=== PATIENT | male | born 1945 | race Caucasian/White ===

== ENCOUNTER 2016-10-17 15:00 | Inpatient (IN) | payer MEDICARE ==
[~2016-10-17] VITALS: Ht 177.8 cm; Wt 85.1 kg
[~2016-10-17 15:00] MED LIST: AMLO-511 PO; ASPI-1093 PO; ATOR40TA28 PO; DSS100 PO; DUTA.5 PO; FLUT1AER PO; LEVE500T8 PO; LEVO500 PO; METO25 PO; METR250 PO; PANT40TA25 PO; TAMS0.4C32 PO; VITAD1000 PO
[2016-10-17] MEDS ORDERED: ASPIRIN 325 MG EC TABLET PO ONE (20:30)
[2016-10-17 20:45] LABS: BASOPHILS % (AUTO) 0.4 % (0.0-2.0); EOSINOPHILS % (AUTO) 1.8 % (1.0-6.0); HEMOGLOBIN 13.3 g/dL (13.5-17.5); LYMPHOCYTES # (AUTO) 1.1 K/uL (1.0-4.8); LYMPHOCYTES % (AUTO) 14.8 % (22.0-44.0); MEAN CORPUSCULAR HEMOGLOBIN 27.8 pg (26.0-34.0); MEAN CORPUSCULAR HGB CONC 32.4 G/dL (31.0-37.0); MEAN CORPUSCULAR VOLUME 86 fL (80-100); MONOCYTES # (AUTO) 0.5 K/uL (0.1-1.0); MONOCYTES % (AUTO) 6.6 % (2.0-9.0); NEUTROPHILS # (AUTO) 5.8 K/uL (1.8-7.7); NEUTROPHILS % (AUTO) 76.4 % (40.0-70.0); PLATELET COUNT (AUTO) 215 K/uL (150-450); RED BLOOD CELL COUNT(AUTO) 4.78 MIL/uL (4.50-5.90); RED CELL DISTRIBUTION WIDTH 17.2 % (11.5-14.5); WHITE BLOOD COUNT (AUTO) 7.6 K/uL (4.5-11.0)
[2016-10-17 20:49] LABS: RBC MORPHOLOGY COMMENT ABNORMAL RBC MORPH
[2016-10-17 21:08] LABS: ANION GAP 10 mmol/L (8-16); CALCIUM, TOTAL 9.2 mg/dL (8.8-10.5); CARBON DIOXIDE 28 mmol/L (22-29); CHLORIDE 100 mmol/L (98-107); CREATININE 2.07 mg/dL (0.60-1.30); GLOMERULAR FILTR. RATE CALC 32 mL/min (>60); POTASSIUM 4.5 mmol/L (3.5-5.1); SODIUM SERUM 138 mmol/L (136-145); UREA NITROGEN, BLOOD 32 mg/dL (7-18)
[2016-10-17 21:15] LABS: B-TYPE NATRIURETIC PEPTIDE 24 pg/mL (0-100)
[2016-10-17 21:35] LABS: ALANINE AMINOTRANSFERASE 31 U/L (12-78); ALBUMIN 4.4 g/dL (3.4-5.0); ASPARTATE AMINOTRANSFERASE 25 U/L (15-37); BILIRUBIN,TOTAL 0.5 mg/dL (0.1-1.0); CREATINE KINASE MB 1.4 ng/mL (0-5); CREATINE KINASE, TOTAL 85 U/L (39-308)
[2016-10-17] MEDS ORDERED: ONDANSETRON HCL 4 MG/2 ML VIAL IVP PRN (23:15)
[2016-10-17] MEDS ORDERED: ACETAMINOPHEN 325 MG TABLET PO PRN (23:15)
[2016-10-17] MEDS ORDERED: 0.9% SODIUM CHLORIDE 10 ML SYRINGE IVP PRN (23:15)
[2016-10-18 04:22] VITALS: BP 146/71
[2016-10-18 07:36] VITALS: BP 148/72
[2016-10-18] MEDS ORDERED: PANTOPRAZOLE SODIUM 40 MG DR TABLET PO SCH (09:00)
[2016-10-18] MEDS: HYDROCODONE/ACETAMINOPHEN 5-325 MG TABLET PO PRN ×3 (09:29→21:24)
[2016-10-18] MEDS ORDERED: ALBUTEROL SULFATE 2.5 MG/0.5 ML NEB SOLUTION NEB PRN (09:30)
[2016-10-18] MEDS ORDERED: IPRATROPIUM BROMIDE 0.5 MG/2.5 ML NEB SOLUTION NEB PRN (09:30)
[2016-10-18 11:26] VITALS: BP 150/73
[2016-10-18 15:21] VITALS: BP 177/78
[2016-10-18] MEDS: FLUTICASONE/VILANTEROL 100-25 MCG/INH INHALER [14] IH SCH (15:28)
[2016-10-18] MEDS: LEVOFLOXACIN 500 MG TABLET PO SCH (15:29)
[2016-10-18] MEDS: LevETIRAcetam 500 MG TABLET PO SCH ×2 (15:29→20:14)
[2016-10-18] MEDS: TAMSULOSIN HCL 0.4 MG CAPSULE PO SCH (15:29)
[2016-10-18] MEDS: DOCUSATE SODIUM 100 MG CAPSULE PO SCH ×2 (15:29→20:14)
[2016-10-18] MEDS: ASPIRIN 81 MG EC TABLET PO SCH (15:29)
[2016-10-18] MEDS: AmLODIPine BESYLATE 5 MG TABLET PO SCH (15:30)
[2016-10-18] MEDS: CHOLECALCIFEROL (VIT D3) 1,000 UNITS TABLET PO SCH (15:30)
[2016-10-18] MEDS: PANTOPRAZOLE SODIUM 40 MG DR TABLET PO SCH (15:30)
[2016-10-18] MEDS: METOPROLOL TARTRATE 25 MG TABLET PO SCH ×2 (16:50→23:32)
[2016-10-18] MEDS: HEPARIN SODIUM,PORCINE 5,000 UNITS/ML VIAL SQ SCH ×2 (16:51→23:33)
[2016-10-18] MEDS: MetroNIDAZOLE 250 MG TABLET PO SCH (18:05)
[2016-10-18] MEDS: ONDANSETRON HCL 4 MG/2 ML VIAL IVP PRN (18:06)
[2016-10-18 19:29] VITALS: BP 149/65
[2016-10-18] MEDS: DUTASTERIDE 0.5 MG CAPSULE PO SCH (20:14)
[2016-10-18] MEDS: ATORVASTATIN CALCIUM 40 MG TABLET PO SCH (20:14)
[2016-10-18] MEDS: MAGNESIUM HYDROXIDE SUSPENSION 30 ML UDCUP PO PRN (20:15)
[2016-10-18 23:26] VITALS: BP 143/80
[2016-10-19] MEDS: HYDROCODONE/ACETAMINOPHEN 5-325 MG TABLET PO PRN ×4 (03:30→23:18)
[2016-10-19 03:49] VITALS: BP 144/66
[2016-10-19 07:51] VITALS: BP 161/81
[2016-10-19] MEDS: MetroNIDAZOLE 250 MG TABLET PO SCH ×3 (08:00→18:11)
[2016-10-19] MEDS: METOPROLOL TARTRATE 25 MG TABLET PO SCH (08:00)
[2016-10-19] MEDS: FLUTICASONE/VILANTEROL 100-25 MCG/INH INHALER [14] IH SCH (09:00)
[2016-10-19 09:15] LABS: BASOPHILS % (AUTO) 0.3 % (0.0-2.0); EOSINOPHILS % (AUTO) 3.8 % (1.0-6.0); HEMATOCRIT 36.5 % (41-53); HEMOGLOBIN 11.9 g/dL (13.5-17.5); LYMPHOCYTES # (AUTO) 1.3 K/uL (1.0-4.8); LYMPHOCYTES % (AUTO) 19.7 % (22.0-44.0); MEAN CORPUSCULAR HEMOGLOBIN 27.8 pg (26.0-34.0); MEAN CORPUSCULAR HGB CONC 32.4 G/dL (31.0-37.0); MEAN CORPUSCULAR VOLUME 86 fL (80-100); MONOCYTES # (AUTO) 0.7 K/uL (0.1-1.0); MONOCYTES % (AUTO) 11.3 % (2.0-9.0); NEUTROPHILS # (AUTO) 4.1 K/uL (1.8-7.7); NEUTROPHILS % (AUTO) 64.9 % (40.0-70.0); PLATELET COUNT (AUTO) 177 K/uL (150-450); RED BLOOD CELL COUNT(AUTO) 4.27 MIL/uL (4.50-5.90); RED CELL DISTRIBUTION WIDTH 18.1 % (11.5-14.5); WHITE BLOOD COUNT (AUTO) 6.4 K/uL (4.5-11.0)
[2016-10-19 09:33] LABS: CALCIUM, TOTAL 8.1 mg/dL (8.8-10.5); CHOL/HDL RATIO 2.5 (4.2-7.3); CREATININE 1.74 mg/dL (0.60-1.30); MAGNESIUM 2.1 mg/dL (1.80-2.40); POTASSIUM 4.4 mmol/L (3.5-5.1)
[2016-10-19] MEDS: ONDANSETRON HCL 4 MG/2 ML VIAL IVP PRN ×2 (10:36→19:41)
[2016-10-19 10:55] VITALS: BP 163/86
[2016-10-19 11:09] LABS: RBC MORPHOLOGY COMMENT ABNORMAL RBC MORPH
[2016-10-19] MEDS: HEPARIN SODIUM,PORCINE 5,000 UNITS/ML VIAL SQ SCH ×4 (11:10→23:39)
[2016-10-19] MEDS: DOCUSATE SODIUM 100 MG CAPSULE PO SCH ×2 (11:11→19:42)
[2016-10-19] MEDS: LEVOFLOXACIN 500 MG TABLET PO SCH (11:12)
[2016-10-19] MEDS: TAMSULOSIN HCL 0.4 MG CAPSULE PO SCH (11:12)
[2016-10-19] MEDS: ASPIRIN 81 MG EC TABLET PO SCH (11:12)
[2016-10-19] MEDS: LevETIRAcetam 500 MG TABLET PO SCH ×2 (11:12→19:43)
[2016-10-19] MEDS: PANTOPRAZOLE SODIUM 40 MG DR TABLET PO SCH (11:13)
[2016-10-19] MEDS: AmLODIPine BESYLATE 5 MG TABLET PO SCH (11:13)
[2016-10-19] MEDS: CHOLECALCIFEROL (VIT D3) 1,000 UNITS TABLET PO SCH (11:13)
[2016-10-19 16:45] VITALS: BP 135/59
[2016-10-19] MEDS: DUTASTERIDE 0.5 MG CAPSULE PO SCH (19:41)
[2016-10-19] MEDS: ATORVASTATIN CALCIUM 40 MG TABLET PO SCH (19:42)
[2016-10-19 19:50] VITALS: BP 166/94
[2016-10-19] MEDS: MIRTAZAPINE 15 MG TABLET PO SCH (20:57)
[2016-10-19] MEDS: HALOPERIDOL 5 MG TABLET PO PRN (21:18)
[2016-10-19 23:18] VITALS: BP 155/76
[2016-10-20] MEDS: HYDROCODONE/ACETAMINOPHEN 5-325 MG TABLET PO PRN ×4 (02:30→21:10)
[2016-10-20 05:02] VITALS: BP 122/51
[2016-10-20 06:22] VITALS: BP 152/61
[2016-10-20] MEDS: NITROGLYCERIN 2% (1 GM=INCH) PACKET TP PRN ×2 (06:35→14:43)
[2016-10-20 07:38] VITALS: BP_SYST 147; BP_SYST 167; BP_DIAS 67
[2016-10-20] MEDS: MetroNIDAZOLE 250 MG TABLET PO SCH ×3 (08:11→16:12)
[2016-10-20] MEDS: AmLODIPine BESYLATE 5 MG TABLET PO SCH (08:12)
[2016-10-20] MEDS: LEVOFLOXACIN 500 MG TABLET PO SCH (08:12)
[2016-10-20] MEDS: HEPARIN SODIUM,PORCINE 5,000 UNITS/ML VIAL SQ SCH ×2 (08:12→16:05)
[2016-10-20] MEDS: DOCUSATE SODIUM 100 MG CAPSULE PO SCH ×2 (08:13→20:37)
[2016-10-20] MEDS: PANTOPRAZOLE SODIUM 40 MG DR TABLET PO SCH (08:13)
[2016-10-20] MEDS: TAMSULOSIN HCL 0.4 MG CAPSULE PO SCH (08:13)
[2016-10-20] MEDS: LevETIRAcetam 500 MG TABLET PO SCH ×2 (08:13→20:37)
[2016-10-20] MEDS: CHOLECALCIFEROL (VIT D3) 1,000 UNITS TABLET PO SCH (08:14)
[2016-10-20] MEDS: FLUTICASONE/VILANTEROL 100-25 MCG/INH INHALER [14] IH SCH (08:14)
[2016-10-20] MEDS: ASPIRIN 81 MG EC TABLET PO SCH (08:14)
[2016-10-20] MEDS: ONDANSETRON HCL 4 MG/2 ML VIAL IVP PRN ×2 (10:05→18:49)
[2016-10-20 11:36] VITALS: BP 132/69
[2016-10-20] MEDS ORDERED: HYDROCODONE/ACETAMINOPHEN 5-325 MG TABLET ONE (12:10)
[2016-10-20 15:13] VITALS: BP 128/64
[2016-10-20] MEDS: HALOPERIDOL 5 MG TABLET PO PRN (16:12)
[2016-10-20 19:59] VITALS: BP 130/70
[2016-10-20] MEDS: DUTASTERIDE 0.5 MG CAPSULE PO SCH (20:37)
[2016-10-20] MEDS: ATORVASTATIN CALCIUM 40 MG TABLET PO SCH (20:37)
[2016-10-20] MEDS: MIRTAZAPINE 15 MG TABLET PO SCH (20:38)
[2016-10-21] MEDS: HALOPERIDOL 5 MG TABLET PO PRN ×3 (01:21→23:46)
[2016-10-21] MEDS: HYDROCODONE/ACETAMINOPHEN 5-325 MG TABLET PO PRN ×6 (01:22→23:46)
[2016-10-21 05:29] VITALS: BP 144/64
[2016-10-21 08:01] VITALS: BP 140/79
[2016-10-21] MEDS: DOCUSATE SODIUM 100 MG CAPSULE PO SCH ×2 (08:25→20:01)
[2016-10-21] MEDS: PANTOPRAZOLE SODIUM 40 MG DR TABLET PO SCH (08:25)
[2016-10-21] MEDS: MetroNIDAZOLE 250 MG TABLET PO SCH ×3 (08:26→17:24)
[2016-10-21] MEDS: LEVOFLOXACIN 500 MG TABLET PO SCH (08:26)
[2016-10-21] MEDS: LevETIRAcetam 500 MG TABLET PO SCH ×2 (08:26→20:00)
[2016-10-21] MEDS: AmLODIPine BESYLATE 5 MG TABLET PO SCH (08:26)
[2016-10-21] MEDS: ASPIRIN 81 MG EC TABLET PO SCH (08:27)
[2016-10-21] MEDS: TAMSULOSIN HCL 0.4 MG CAPSULE PO SCH (08:27)
[2016-10-21] MEDS: CHOLECALCIFEROL (VIT D3) 1,000 UNITS TABLET PO SCH (08:28)
[2016-10-21] MEDS: HEPARIN SODIUM,PORCINE 5,000 UNITS/ML VIAL SQ SCH ×4 (08:30→23:45)
[2016-10-21] MEDS: NITROGLYCERIN 2% (1 GM=INCH) PACKET TP PRN (09:21)
[2016-10-21] MEDS: ONDANSETRON HCL 4 MG/2 ML VIAL IVP PRN (10:14)
[2016-10-21] MEDS: FLUTICASONE/VILANTEROL 100-25 MCG/INH INHALER [14] IH SCH (10:15)
[2016-10-21 11:46] VITALS: BP 148/76
[2016-10-21] MEDS ORDERED: LORazepam 2 MG/ML VIAL IVP ONE (14:30)
[2016-10-21 16:35] VITALS: BP 144/77
[2016-10-21] MEDS: ONDANSETRON HCL 4 MG/2 ML VIAL IM PRN (16:44)
[2016-10-21 19:50] VITALS: BP 140/76
[2016-10-21] MEDS: DUTASTERIDE 0.5 MG CAPSULE PO SCH (20:00)
[2016-10-21] MEDS: ATORVASTATIN CALCIUM 40 MG TABLET PO SCH (20:00)
[2016-10-21] MEDS: MIRTAZAPINE 15 MG TABLET PO SCH (20:01)
[2016-10-21] MEDS ORDERED: LORazepam 2 MG/ML VIAL ONE (20:01)
[2016-10-21] MEDS: MAGNESIUM HYDROXIDE SUSPENSION 30 ML UDCUP PO PRN (21:30)
[2016-10-21 23:37] VITALS: BP 124/49
[2016-10-22] MEDS: NITROGLYCERIN 2% (1 GM=INCH) PACKET TP PRN ×2 (01:13→06:28)
[2016-10-22 03:53] LABS: CREATINE KINASE MB 1.1 ng/mL (0-5); CREATINE KINASE, TOTAL 151 U/L (39-308)
[2016-10-22 04:19] VITALS: BP 135/69
[2016-10-22] MEDS: ONDANSETRON HCL 4 MG/2 ML VIAL IM PRN ×2 (04:21→08:22)
[2016-10-22] MEDS: HYDROCODONE/ACETAMINOPHEN 5-325 MG TABLET PO PRN ×4 (06:25→17:51)
[2016-10-22 07:18] VITALS: BP 153/68
[2016-10-22] MEDS: PANTOPRAZOLE SODIUM 40 MG DR TABLET PO SCH (09:06)
[2016-10-22] MEDS: TAMSULOSIN HCL 0.4 MG CAPSULE PO SCH (09:06)
[2016-10-22] MEDS: ASPIRIN 81 MG EC TABLET PO SCH (09:06)
[2016-10-22] MEDS: LEVOFLOXACIN 500 MG TABLET PO SCH (09:06)
[2016-10-22] MEDS: LevETIRAcetam 500 MG TABLET PO SCH (09:07)
[2016-10-22] MEDS: CHOLECALCIFEROL (VIT D3) 1,000 UNITS TABLET PO SCH (09:07)
[2016-10-22] MEDS: HEPARIN SODIUM,PORCINE 5,000 UNITS/ML VIAL SQ SCH ×2 (09:07→16:56)
[2016-10-22] MEDS: MetroNIDAZOLE 250 MG TABLET PO SCH ×3 (09:07→17:51)
[2016-10-22] MEDS: DOCUSATE SODIUM 100 MG CAPSULE PO SCH (09:07)
[2016-10-22] MEDS: AmLODIPine BESYLATE 5 MG TABLET PO SCH (09:08)
[2016-10-22] MEDS: FLUTICASONE/VILANTEROL 100-25 MCG/INH INHALER [14] IH SCH (09:08)
[2016-10-22] MEDS: MAGNESIUM HYDROXIDE SUSPENSION 30 ML UDCUP PO PRN (09:16)
[2016-10-22 12:23] VITALS: BP 167/84
[2016-10-22] MEDS: HALOPERIDOL 5 MG TABLET PO PRN (13:09)
[2016-10-22 15:00] VITALS: BP 142/75
== END 2016-10-22 19:00 | disposition home or self-care (01) | DRG 303 ==
LOC: EMS 15:02 → 5S 23:45 → 6N 10-19 16:30
PROVIDERS: ADMIT Family Medicine; ATTEND Family Medicine
DX: I25.119 Atherosclerotic heart disease of native coronary artery with unspecified angina pectoris (principal); J44.9 Chronic obstructive pulmonary disease, unspecified; I48.91 Unspecified atrial fibrillation; N18.9 Chronic kidney disease, unspecified; I12.9 Hypertensive chronic kidney disease with stage 1 through stage 4 chronic kidney disease, or unspecified chronic kidney disease; E78.00 Pure hypercholesterolemia, unspecified; E78.5 Hyperlipidemia, unspecified; F20.9 Schizophrenia, unspecified; F34.1 Dysthymic disorder; G40.909 Epilepsy, unspecified, not intractable, without status epilepticus; G89.4 Chronic pain syndrome; I44.0 Atrioventricular block, first degree; F17.210 Nicotine dependence, cigarettes, uncomplicated; F43.23 Adjustment disorder with mixed anxiety and depressed mood; M79.7 Fibromyalgia; M48.00 Spinal stenosis, site unspecified; N40.0 Benign prostatic hyperplasia without lower urinary tract symptoms; I25.2 Old myocardial infarction; Z79.899 Other long term (current) drug therapy; Z79.82 Long term (current) use of aspirin; Z88.1 Allergy status to other antibiotic agents; Z91.018 Allergy to other foods; Z91.09 Other allergy status, other than to drugs and biological substances; Z89.022 Acquired absence of left finger(s); Z98.890 Other specified postprocedural states; Z90.49 Acquired absence of other specified parts of digestive tract; Z95.5 Presence of coronary angioplasty implant and graft; Z95.0 Presence of cardiac pacemaker; Z87.11 Personal history of peptic ulcer disease; Z82.49 Family history of ischemic heart disease and other diseases of the circulatory system; Z83.6 Family history of other diseases of the respiratory system
CPT/HCPCS: 83735; 93005; 99285; J1644; J2060; J2405

== ENCOUNTER 2016-10-23 04:15 | Emergency (ER) | payer MEDICARE ==
[~2016-10-23] VITALS: Ht 177.8 cm; Wt 75.0 kg
[2016-10-23 05:27] LABS: APPEARANCE,URINE CLEAR (CLEAR); GLUCOSE, URINE (UA) NEGATIVE (NEGATIVE); KETONES,URINE NEGATIVE (NEGATIVE); LEUKOCYTE ESTERASE ,URINE TRACE (NEGATIVE); OCCULT BLOOD,URINE NEGATIVE (NEGATIVE); PROTEIN,URINE NEGATIVE (NEGATIVE)
[2016-10-23 05:28] LABS: ADD UA MICROSCOPIC YES
[2016-10-23 05:47] LABS: RBC,URINE 0-2 /HPF (0-2); SQUAMOUS EPITHELIAL CELL,UR Rare /LPF (None Seen)
[2016-10-23 05:54] LABS: BASOPHILS # (AUTO) 0.04 K/uL (0.00-0.20); BASOPHILS % (AUTO) 0.6 % (0.0-2.0); EOSINOPHILS # (AUTO) 0.33 K/uL (0.00-0.70); EOSINOPHILS % (AUTO) 5.39 % (1.0-6.0); HEMATOCRIT 33.9 % (41-53); HEMOGLOBIN 11.3 g/dL (13.5-17.5); LYMPHOCYTES # (AUTO) 1.2 K/uL (1.0-4.8); LYMPHOCYTES % (AUTO) 20.4 % (22.0-44.0); MEAN CORPUSCULAR HEMOGLOBIN 28.6 pg (26.0-34.0); MEAN CORPUSCULAR HGB CONC 33.3 G/dL (31.0-37.0); MEAN CORPUSCULAR VOLUME 86 fL (80-100); MONOCYTES # (AUTO) 0.6 K/uL (0.1-1.0); MONOCYTES % (AUTO) 10.3 % (2.0-9.0); NEUTROPHILS # (AUTO) 3.8 K/uL (1.8-7.7); NEUTROPHILS % (AUTO) 63.3 % (40.0-70.0); PLATELET COUNT (AUTO) 186 K/uL (150-450); RED BLOOD CELL COUNT(AUTO) 3.96 MIL/uL (4.50-5.90); RED CELL DISTRIBUTION WIDTH 17.9 % (11.5-14.5)
[2016-10-23 06:06] LABS: CALCIUM, TOTAL 8.2 mg/dL (8.8-10.5); CREATININE 2.1 mg/dL (0.60-1.30); POTASSIUM 4.7 mmol/L (3.5-5.1)
[2016-10-23 06:12] LABS: ALBUMIN 3.5 g/dL (3.4-5.0); BILIRUBIN,TOTAL 0.5 mg/dL (0.1-1.0); TOTAL PROTEIN, SERUM 6.7 g/dL (6.4-8.2)
[2016-10-23 08:44] VITALS: BP 157/76
== END 2016-10-23 09:39 | disposition home or self-care (01) ==
LOC: EMS 04:17
DX: R10.13 Epigastric pain (principal); I11.0 Hypertensive heart disease with heart failure; I50.9 Heart failure, unspecified; I25.10 Atherosclerotic heart disease of native coronary artery without angina pectoris; I48.91 Unspecified atrial fibrillation; E78.00 Pure hypercholesterolemia, unspecified; J44.9 Chronic obstructive pulmonary disease, unspecified; F17.210 Nicotine dependence, cigarettes, uncomplicated; Z88.1 Allergy status to other antibiotic agents; Z91.018 Allergy to other foods
CPT/HCPCS: 93005; 99285

== ENCOUNTER 2016-10-24 09:04 | Emergency (ER) | payer MEDICARE ==
[~2016-10-24] VITALS: Ht 177.8 cm; Wt 75.0 kg
[~2016-10-24 09:04] MED LIST changes: +FLUT1AER IH; -FLUT1AER PO
[2016-10-24 09:16] VITALS: BP 161/81
== END 2016-10-24 09:50 | disposition home or self-care (01) ==
LOC: EMS 09:08
DX: R07.9 Chest pain, unspecified (principal); R10.13 Epigastric pain; G89.29 Other chronic pain; F20.9 Schizophrenia, unspecified; I48.91 Unspecified atrial fibrillation; F41.9 Anxiety disorder, unspecified; I25.119 Atherosclerotic heart disease of native coronary artery with unspecified angina pectoris; J44.9 Chronic obstructive pulmonary disease, unspecified; I25.2 Old myocardial infarction; F32.9 Major depressive disorder, single episode, unspecified; I10 Essential (primary) hypertension; F17.210 Nicotine dependence, cigarettes, uncomplicated; E78.00 Pure hypercholesterolemia, unspecified; Z95.0 Presence of cardiac pacemaker; Z88.8 Allergy status to other drugs, medicaments and biological substances; Z91.018 Allergy to other foods
CPT/HCPCS: 93005; 99283

== ENCOUNTER 2016-12-04 19:20 | Emergency (ER) | payer MEDICARE, MEDICAID ==
[~2016-12-04] VITALS: Ht 177.8 cm; Wt 75.0 kg
[~2016-12-04 19:20] MED LIST changes: -FLUT1AER IH; +FLUT1AER PO
[2016-12-04 20:10] LABS: BASOPHILS # (AUTO) 0.02 K/uL (0.00-0.20); BASOPHILS % (AUTO) 0.4 % (0.0-2.0); EOSINOPHILS # (AUTO) 0.21 K/uL (0.00-0.70); EOSINOPHILS % (AUTO) 3.44 % (1.0-6.0); HEMATOCRIT 35.3 % (41-53); HEMOGLOBIN 11.5 g/dL (13.5-17.5); LYMPHOCYTES # (AUTO) 1.2 K/uL (1.0-4.8); LYMPHOCYTES % (AUTO) 20.1 % (22.0-44.0); MEAN CORPUSCULAR HEMOGLOBIN 28.9 pg (26.0-34.0); MEAN CORPUSCULAR HGB CONC 32.5 G/dL (31.0-37.0); MEAN CORPUSCULAR VOLUME 89 fL (80-100); MONOCYTES # (AUTO) 0.7 K/uL (0.1-1.0); MONOCYTES % (AUTO) 11.6 % (2.0-9.0); NEUTROPHILS # (AUTO) 3.9 K/uL (1.8-7.7); NEUTROPHILS % (AUTO) 64.5 % (40.0-70.0); PLATELET COUNT (AUTO) 199 K/uL (150-450); RED BLOOD CELL COUNT(AUTO) 3.97 MIL/uL (4.50-5.90); RED CELL DISTRIBUTION WIDTH 15.1 % (11.5-14.5)
[2016-12-04 20:24] LABS: ANION GAP 12 mmol/L (8-16); CALCIUM, TOTAL 8.5 mg/dL (8.8-10.5); CARBON DIOXIDE 27 mmol/L (22-29); CHLORIDE 98 mmol/L (98-107); CREATININE 1.94 mg/dL (0.60-1.30); GLOMERULAR FILTR. RATE CALC 34 mL/min (>60); POTASSIUM 3.7 mmol/L (3.5-5.1); SODIUM SERUM 137 mmol/L (136-145); UREA NITROGEN, BLOOD 28 mg/dL (7-18)
[2016-12-04 20:30] LABS: ALANINE AMINOTRANSFERASE 22 U/L (12-78); ALBUMIN 3.5 g/dL (3.4-5.0); ASPARTATE AMINOTRANSFERASE 20 U/L (15-37); BILIRUBIN,TOTAL 0.4 mg/dL (0.1-1.0)
[2016-12-04 22:37] LABS: APPEARANCE,URINE CLOUDY (CLEAR); GLUCOSE, URINE (UA) NEGATIVE (NEGATIVE); KETONES,URINE NEGATIVE (NEGATIVE); LEUKOCYTE ESTERASE ,URINE LARGE (NEGATIVE); OCCULT BLOOD,URINE SMALL (NEGATIVE); PROTEIN,URINE NEGATIVE (NEGATIVE)
[2016-12-04 23:05] LABS: SQUAMOUS EPITHELIAL CELL,UR Rare /LPF (None Seen); WBC,URINE 51-100 /HPF (0-5)
[2016-12-04 23:06] LABS: AMORPHOUS SEDIMENT,UR Few /LPF (None Seen)
[2016-12-04] MEDS ORDERED: CIPROFLOXACIN HCL 250 MG TABLET PO ONE (23:15)
[2016-12-04 23:20] VITALS: BP 136/74
== END 2016-12-04 23:55 | disposition home or self-care (01) ==
LOC: EMS 19:23
DX: N39.0 Urinary tract infection, site not specified (principal); I48.91 Unspecified atrial fibrillation; I25.119 Atherosclerotic heart disease of native coronary artery with unspecified angina pectoris; J44.9 Chronic obstructive pulmonary disease, unspecified; I25.2 Old myocardial infarction; E78.00 Pure hypercholesterolemia, unspecified; I10 Essential (primary) hypertension; F20.9 Schizophrenia, unspecified; F41.9 Anxiety disorder, unspecified; F32.9 Major depressive disorder, single episode, unspecified; F17.210 Nicotine dependence, cigarettes, uncomplicated; Z95.0 Presence of cardiac pacemaker; Z79.82 Long term (current) use of aspirin; Z88.5 Allergy status to narcotic agent; Z91.018 Allergy to other foods
CPT/HCPCS: 36415; 80053; 80307; 81001; 85025; 87077; 87086; 99284; G0480

== ENCOUNTER 2017-01-13 17:38 | Inpatient (IN) | payer MEDICARE, MEDICAID ==
[~2017-01-13] VITALS: Ht 177.8 cm; Wt 79.6 kg
[~2017-01-13 17:38] MED LIST changes: +FLUT1AER IH; -FLUT1AER PO; -LEVO500 PO; -METR250 PO
[2017-01-13] MEDS ORDERED: MORPHINE SULFATE 4 MG/ML SYRINGE IVP ONE (18:45)
[2017-01-13] MEDS ORDERED: ONDANSETRON HCL 4 MG/2 ML VIAL IVP ONE (18:45)
[2017-01-13 18:50] LABS: BASOPHILS % (AUTO) 0.3 % (0.0-2.0); EOSINOPHILS % (AUTO) 6.8 % (1.0-6.0); HEMOGLOBIN 12.2 g/dL (13.5-17.5); LYMPHOCYTES # (AUTO) 1.7 K/uL (1.0-4.8); LYMPHOCYTES % (AUTO) 27.5 % (22.0-44.0); MEAN CORPUSCULAR HEMOGLOBIN 29.4 pg (26.0-34.0); MEAN CORPUSCULAR VOLUME 89 fL (80-100); MONOCYTES # (AUTO) 0.6 K/uL (0.1-1.0); MONOCYTES % (AUTO) 9.3 % (2.0-9.0); NEUTROPHILS # (AUTO) 3.4 K/uL (1.8-7.7); NEUTROPHILS % (AUTO) 56.1 % (40.0-70.0); PLATELET COUNT (AUTO) 206 K/uL (150-450); RED BLOOD CELL COUNT(AUTO) 4.15 MIL/uL (4.50-5.90); RED CELL DISTRIBUTION WIDTH 14.8 % (11.5-14.5)
[2017-01-13 19:00] LABS: ANION GAP 7 mmol/L (8-16); CALCIUM, TOTAL 9.2 mg/dL (8.8-10.5); CARBON DIOXIDE 32 mmol/L (22-29); CHLORIDE 100 mmol/L (98-107); CREATININE 2.39 mg/dL (0.60-1.30); GLOMERULAR FILTR. RATE CALC 27 mL/min (>60); POTASSIUM 4.3 mmol/L (3.5-5.1); SODIUM SERUM 139 mmol/L (136-145); UREA NITROGEN, BLOOD 26 mg/dL (7-18)
[2017-01-13 19:02] LABS: PROTHROMBIN TIME 10.7 SEC (9.4-11.6)
[2017-01-13 19:06] LABS: ALANINE AMINOTRANSFERASE 24 U/L (12-78); ASPARTATE AMINOTRANSFERASE 18 U/L (15-37); BILIRUBIN,TOTAL 0.4 mg/dL (0.1-1.0); CREATINE KINASE, TOTAL 41 U/L (39-308); TOTAL PROTEIN, SERUM 7.1 g/dL (6.4-8.2)
[2017-01-13 19:10] LABS: B-TYPE NATRIURETIC PEPTIDE 32 pg/mL (0-100)
[2017-01-13] MEDS ORDERED: ONDANSETRON HCL 4 MG/2 ML VIAL IVP PRN (20:15)
[2017-01-13] MEDS ORDERED: ACETAMINOPHEN 325 MG TABLET PO PRN ×2 (20:15→23:15)
[2017-01-13] MEDS ORDERED: 0.9% SODIUM CHLORIDE 10 ML SYRINGE IVP PRN (20:15)
[2017-01-13 21:41] VITALS: BP 120/65
[2017-01-14 00:04] VITALS: BP 112/61
[2017-01-14] MEDS: NITROGLYCERIN 2% (1 GM=INCH) PACKET TP PRN ×2 (00:41→08:05)
[2017-01-14] MEDS: LevETIRAcetam 500 MG TABLET PO SCH ×3 (00:42→21:07)
[2017-01-14] MEDS: METOPROLOL TARTRATE 25 MG TABLET PO SCH ×3 (00:42→17:00)
[2017-01-14] MEDS: OXYGEN THERAPY IH SCH ×3 (00:42→21:08)
[2017-01-14] MEDS: HEPARIN SODIUM,PORCINE 5,000 UNITS/ML VIAL SQ SCH ×3 (00:43→16:59)
[2017-01-14] MEDS ORDERED: IPRATROPIUM BROMIDE 0.5 MG/2.5 ML NEB SOLUTION NEB SCH (02:00)
[2017-01-14] MEDS ORDERED: ALBUTEROL SULFATE 2.5 MG/0.5 ML NEB SOLUTION NEB SCH (02:00)
[2017-01-14 04:21] VITALS: BP 132/57
[2017-01-14 06:38] LABS: BASOPHILS % (AUTO) 0.4 % (0.0-2.0); EOSINOPHILS % (AUTO) 7.9 % (1.0-6.0); HEMATOCRIT 33.4 % (41-53); HEMOGLOBIN 11.3 g/dL (13.5-17.5); LYMPHOCYTES # (AUTO) 1.7 K/uL (1.0-4.8); LYMPHOCYTES % (AUTO) 30.4 % (22.0-44.0); MEAN CORPUSCULAR HEMOGLOBIN 29.8 pg (26.0-34.0); MEAN CORPUSCULAR HGB CONC 33.7 G/dL (31.0-37.0); MEAN CORPUSCULAR VOLUME 88 fL (80-100); MONOCYTES # (AUTO) 0.7 K/uL (0.1-1.0); MONOCYTES % (AUTO) 12.3 % (2.0-9.0); NEUTROPHILS # (AUTO) 2.8 K/uL (1.8-7.7); PLATELET COUNT (AUTO) 172 K/uL (150-450); RED BLOOD CELL COUNT(AUTO) 3.78 MIL/uL (4.50-5.90); WHITE BLOOD COUNT (AUTO) 5.7 K/uL (4.5-11.0)
[2017-01-14 06:52] LABS: ALBUMIN 3.5 g/dL (3.4-5.0); BILIRUBIN,TOTAL 0.3 mg/dL (0.1-1.0); CALCIUM, TOTAL 8.6 mg/dL (8.8-10.5); CHOL/HDL RATIO 3.2 (4.2-7.3); CREATININE 2.4 mg/dL (0.60-1.30); MAGNESIUM 2.2 mg/dL (1.80-2.40); POTASSIUM 3.8 mmol/L (3.5-5.1); TOTAL PROTEIN, SERUM 6.3 g/dL (6.4-8.2)
[2017-01-14 07:06] LABS: HEMOGLOBIN A1C 5.8 % (4.5-6.2)
[2017-01-14 07:32] VITALS: BP 141/65
[2017-01-14] MEDS ORDERED: ONDANSETRON HCL 4 MG/2 ML VIAL IVP PRN (07:45)
[2017-01-14] MEDS: AmLODIPine BESYLATE 5 MG TABLET PO SCH (08:09)
[2017-01-14] MEDS: TAMSULOSIN HCL 0.4 MG CAPSULE PO SCH (08:09)
[2017-01-14] MEDS: CHOLECALCIFEROL (VIT D3) 1,000 UNITS TABLET PO SCH (08:09)
[2017-01-14] MEDS: DOCUSATE SODIUM 100 MG CAPSULE PO SCH ×2 (08:10→21:06)
[2017-01-14] MEDS: PANTOPRAZOLE SODIUM 40 MG DR TABLET PO SCH (08:10)
[2017-01-14] MEDS: ASPIRIN 81 MG CHEWABLE TABLET PO SCH (08:10)
[2017-01-14] MEDS ORDERED: ASPIRIN 81 MG EC TABLET PO SCH (09:00)
[2017-01-14 11:24] VITALS: BP 130/66
[2017-01-14] MEDS: HYDROCODONE/ACETAMINOPHEN 5-325 MG TABLET PO PRN ×2 (13:00→19:45)
[2017-01-14] MEDS: HYDROCORTISONE 0.5% 30 GM CREAM TP SCH ×2 (14:43→21:07)
[2017-01-14] MEDS ORDERED: MAGNESIUM HYDROXIDE SUSPENSION 30 ML UDCUP PO PRN (15:00)
[2017-01-14] MEDS ORDERED: SODIUM PHOS/SODIUM BIPHOS 133 ML ENEMA PR PRN (15:00)
[2017-01-14 15:45] VITALS: BP 142/61
[2017-01-14 19:17] VITALS: BP 143/68
[2017-01-14] MEDS ORDERED: DUTASTERIDE 0.5 MG CAPSULE PO SCH (21:00)
[2017-01-14] MEDS ORDERED: ATORVASTATIN CALCIUM 40 MG TABLET PO SCH (21:00)
[2017-01-15 00:18] VITALS: BP 139/64
[2017-01-15] MEDS: METOPROLOL TARTRATE 25 MG TABLET PO SCH ×2 (00:32→08:47)
[2017-01-15] MEDS: HEPARIN SODIUM,PORCINE 5,000 UNITS/ML VIAL SQ SCH ×2 (00:33→08:44)
[2017-01-15] MEDS: NITROGLYCERIN 2% (1 GM=INCH) PACKET TP PRN (04:51)
[2017-01-15 05:00] VITALS: BP 140/63
[2017-01-15 07:33] VITALS: BP 116/73
[2017-01-15] MEDS: OXYGEN THERAPY IH SCH (08:00)
[2017-01-15] MEDS: ASPIRIN 81 MG CHEWABLE TABLET PO SCH (08:48)
[2017-01-15] MEDS: HYDROCODONE/ACETAMINOPHEN 5-325 MG TABLET PO PRN (08:49)
[2017-01-15] MEDS: DOCUSATE SODIUM 100 MG CAPSULE PO SCH (08:55)
[2017-01-15] MEDS: AmLODIPine BESYLATE 5 MG TABLET PO SCH (08:56)
[2017-01-15] MEDS: LevETIRAcetam 500 MG TABLET PO SCH (08:56)
[2017-01-15] MEDS: PANTOPRAZOLE SODIUM 40 MG DR TABLET PO SCH (08:56)
[2017-01-15] MEDS: CHOLECALCIFEROL (VIT D3) 1,000 UNITS TABLET PO SCH (08:57)
[2017-01-15] MEDS: TAMSULOSIN HCL 0.4 MG CAPSULE PO SCH (10:31)
[2017-01-15] MEDS: HYDROCORTISONE 0.5% 30 GM CREAM TP SCH (10:31)
[2017-01-15 11:10] VITALS: BP 159/71
== END 2017-01-15 13:40 | disposition left against medical advice (07) | DRG 303 ==
LOC: EMS 17:40 → 5N 19:30
PROVIDERS: ADMIT Family Medicine; ATTEND Family Medicine
DX: I25.119 Atherosclerotic heart disease of native coronary artery with unspecified angina pectoris (principal); I12.9 Hypertensive chronic kidney disease with stage 1 through stage 4 chronic kidney disease, or unspecified chronic kidney disease; R07.9 Chest pain, unspecified; F20.9 Schizophrenia, unspecified; I48.91 Unspecified atrial fibrillation; G40.909 Epilepsy, unspecified, not intractable, without status epilepticus; E78.5 Hyperlipidemia, unspecified; G89.4 Chronic pain syndrome; J44.9 Chronic obstructive pulmonary disease, unspecified; F41.9 Anxiety disorder, unspecified; F32.9 Major depressive disorder, single episode, unspecified; N18.9 Chronic kidney disease, unspecified; I45.10 Unspecified right bundle-branch block; N40.0 Benign prostatic hyperplasia without lower urinary tract symptoms; Z53.29 Procedure and treatment not carried out because of patient's decision for other reasons; F17.200 Nicotine dependence, unspecified, uncomplicated; E78.00 Pure hypercholesterolemia, unspecified; Z88.1 Allergy status to other antibiotic agents; Z91.02 Food additives allergy status; I25.2 Old myocardial infarction; Z71.6 Tobacco abuse counseling; Z79.899 Other long term (current) drug therapy; Z79.02 Long term (current) use of antithrombotics/antiplatelets
CPT/HCPCS: 74000; 83036; 83735; 93005; 96374; 99285; J1644; J2270; J2405

== ENCOUNTER 2017-01-15 16:23 | Emergency (ER) | payer MEDICARE, MEDICAID ==
[~2017-01-15] VITALS: Ht 177.8 cm; Wt 77.3 kg
[2017-01-15 16:50] VITALS: BP 129/85
== END 2017-01-15 17:18 | disposition left against medical advice (07) ==
LOC: EMS 16:27
DX: R07.9 Chest pain, unspecified (principal); F25.9 Schizoaffective disorder, unspecified; I25.10 Atherosclerotic heart disease of native coronary artery without angina pectoris; I25.2 Old myocardial infarction; I48.91 Unspecified atrial fibrillation; I10 Essential (primary) hypertension; E78.00 Pure hypercholesterolemia, unspecified; J44.9 Chronic obstructive pulmonary disease, unspecified; F17.210 Nicotine dependence, cigarettes, uncomplicated; Z88.1 Allergy status to other antibiotic agents; Z91.018 Allergy to other foods; Z88.8 Allergy status to other drugs, medicaments and biological substances
CPT/HCPCS: 93005; 99283

== ENCOUNTER 2019-01-07 11:18 | Emergency (ER) | payer MEDICARE, MEDICAID ==
[~2019-01-07] VITALS: Ht 177.8 cm; Wt 72.7 kg
[~2019-01-07 11:18] MED LIST changes: -ASPI-1093 PO; +ASPI-1182 PO
[2019-01-07] MEDS ORDERED: SIME80 PO (12:42)
[2019-01-07] MEDS ORDERED: RISP2 PO (12:42)
[2019-01-07] MEDS ORDERED: MONT10TA21 PO (12:42)
[2019-01-07] MEDS ORDERED: ISOS20TA9 PO (12:42)
[2019-01-07] MEDS ORDERED: QUES4 PO (12:42)
[2019-01-07] MEDS ORDERED: FAMO20 PO (12:42)
[2019-01-07] MEDS ORDERED: TRAM50TA4 PO (12:42)
[2019-01-07] MEDS ORDERED: MOM30 PO (12:42)
[2019-01-07] MEDS ORDERED: BUSP10TA23 PO (12:42)
[2019-01-07] MEDS ORDERED: BISA10SU61 PR (12:42)
[2019-01-07] MEDS ORDERED: FE PR (12:42)
[2019-01-07] MEDS ORDERED: SUCR1TAB PO (12:42)
[2019-01-07] MEDS ORDERED: ONDA4 PO (12:42)
[2019-01-07] MEDS ORDERED: TOBRDOS OP (12:42)
[2019-01-07 14:37] LABS: BASOPHILS % (AUTO) 0.6 % (0.0-2.0); EOSINOPHILS % (AUTO) 1.1 % (1.0-6.0); HEMATOCRIT 41.1 % (41-53); HEMOGLOBIN 13.4 g/dL (13.5-17.5); LYMPHOCYTES # (AUTO) 1.1 K/uL (1.0-4.8); LYMPHOCYTES % (AUTO) 14.9 % (22.0-44.0); MEAN CORPUSCULAR HEMOGLOBIN 27.6 pg (26.0-34.0); MEAN CORPUSCULAR HGB CONC 32.6 G/dL (31.0-37.0); MEAN CORPUSCULAR VOLUME 85 fL (80-100); MONOCYTES # (AUTO) 0.5 K/uL (0.1-1.0); MONOCYTES % (AUTO) 7.2 % (2.0-9.0); NEUTROPHILS # (AUTO) 5.4 K/uL (1.8-7.7); NEUTROPHILS % (AUTO) 76.2 % (40.0-70.0); PLATELET COUNT (AUTO) 223 K/uL (150-450); RED BLOOD CELL COUNT(AUTO) 4.85 MIL/uL (4.50-5.90); RED CELL DISTRIBUTION WIDTH 16.2 % (11.5-14.5)
[2019-01-07 14:46] LABS: CALCIUM, TOTAL 9.8 mg/dL (8.8-10.5); CREATININE 1.58 mg/dL (0.60-1.30); POTASSIUM 4.7 mmol/L (3.5-5.1)
[2019-01-07 14:53] LABS: LACTIC ACID 0.9 mmol/L (0.4-2.0)
[2019-01-07 15:00] LABS: BILIRUBIN,TOTAL 0.4 mg/dL (0.1-1.0); TOTAL PROTEIN, SERUM 7.6 g/dL (6.4-8.2)
[2019-01-07 16:46] LABS: APPEARANCE,URINE CLEAR (CLEAR); BILIRUBIN,URINE NEGATIVE (NEGATIVE); GLUCOSE, URINE (UA) NEGATIVE (NEGATIVE); KETONES,URINE NEGATIVE (NEGATIVE); LEUKOCYTE ESTERASE ,URINE TRACE (NEGATIVE); NITRATE,URINE NEGATIVE (NEGATIVE); OCCULT BLOOD,URINE NEGATIVE (NEGATIVE); PROTEIN,URINE NEGATIVE (NEGATIVE); UROBILINOGEN,URINE 0.2 mg/dL (<=1.0)
[2019-01-07 17:02] LABS: BACTERIA,URINE Rare /HPF (None Seen); RBC,URINE 0-2 /HPF (0-2); TRANSITIONAL EPI CELLS,URINE Rare /LPF (None Seen)
[2019-01-07 18:03] VITALS: BP 146/70
== END 2019-01-07 19:03 | disposition home or self-care (01) ==
LOC: EMS 11:23
DX: R10.31 Right lower quadrant pain (principal); I10 Essential (primary) hypertension; E78.00 Pure hypercholesterolemia, unspecified; I25.10 Atherosclerotic heart disease of native coronary artery without angina pectoris; F41.9 Anxiety disorder, unspecified; I48.91 Unspecified atrial fibrillation; J44.9 Chronic obstructive pulmonary disease, unspecified; F32.9 Major depressive disorder, single episode, unspecified; F20.9 Schizophrenia, unspecified; F17.210 Nicotine dependence, cigarettes, uncomplicated; Z88.1 Allergy status to other antibiotic agents; Z91.018 Allergy to other foods; Z79.899 Other long term (current) drug therapy
CPT/HCPCS: 51702; 74176; 83605; 87086; 93005

== ENCOUNTER 2019-01-18 13:19 | Inpatient (IN) | payer MEDICARE, MEDICAID ==
[~2019-01-18] VITALS: Ht 167.6 cm; Wt 73.5 kg
[~2019-01-18 13:19] MED LIST changes: -AMLO-511 PO; -ATOR40TA28 PO; +BISA10SU61 PR; +BUSP10TA23 PO; -DUTA.5 PO; +FAMO20 PO; +FE PR; -FLUT1AER IH; +ISOS20TA9 PO; +MOM30 PO; +MONT10TA21 PO; +ONDA4 PO; -PANT40TA25 PO; +QUES4 PO; +RISP2 PO; +SIME80 PO; +SUCR1TAB PO; +TOBRDOS OU; +TRAM50TA4 PO; -VITAD1000 PO
[2019-01-18] MEDS ORDERED: ROSU20TA23 PO (13:48)
[2019-01-18] MEDS ORDERED: OLAN5TAB2 PO (13:48)
[2019-01-18] MEDS ORDERED: ISOS20TA7 PO (13:48)
[2019-01-18] MEDS ORDERED: METO25XL PO (13:48)
[2019-01-18] MEDS ORDERED: ATOR40TA28 PO (13:48)
[2019-01-18 14:04] LABS: BASOPHILS % (AUTO) 0.7 % (0.0-2.0); EOSINOPHILS % (AUTO) 1.9 % (1.0-6.0); HEMATOCRIT 35.4 % (41-53); HEMOGLOBIN 11.6 g/dL (13.5-17.5); LYMPHOCYTES # (AUTO) 0.8 K/uL (1.0-4.8); LYMPHOCYTES % (AUTO) 11.1 % (22.0-44.0); MEAN CORPUSCULAR HEMOGLOBIN 28.1 pg (26.0-34.0); MEAN CORPUSCULAR HGB CONC 32.9 G/dL (31.0-37.0); MEAN CORPUSCULAR VOLUME 86 fL (80-100); MONOCYTES # (AUTO) 0.7 K/uL (0.1-1.0); MONOCYTES % (AUTO) 9.4 % (2.0-9.0); NEUTROPHILS # (AUTO) 5.4 K/uL (1.8-7.7); NEUTROPHILS % (AUTO) 76.9 % (40.0-70.0); PLATELET COUNT (AUTO) 183 K/uL (150-450); RED BLOOD CELL COUNT(AUTO) 4.14 MIL/uL (4.50-5.90); RED CELL DISTRIBUTION WIDTH 16.9 % (11.5-14.5)
[2019-01-18 14:15] LABS: CALCIUM, TOTAL 9.2 mg/dL (8.8-10.5); CREATININE 1.68 mg/dL (0.60-1.30); POTASSIUM 4.7 mmol/L (3.5-5.1)
[2019-01-18] MEDS ORDERED: HYDROmorphone 2 MG/ML SYRINGE IVP ONE ×2 (14:15→16:00)
[2019-01-18] MEDS ORDERED: SODIUM CHLORIDE 0.9% 1,000 ML IV ONE (14:15)
[2019-01-18] MEDS ORDERED: ONDANSETRON HCL 4 MG/2 ML VIAL IVP ONE (14:15)
[2019-01-18 14:28] LABS: ALBUMIN 3.3 g/dL (3.4-5.0); BILIRUBIN,TOTAL 0.3 mg/dL (0.1-1.0); TOTAL PROTEIN, SERUM 6.6 g/dL (6.4-8.2)
[2019-01-18] MEDS ORDERED: BARIUM SULFATE 0.1% SUSPENSION 450 ML BOTTLE PO ONE (14:45)
[2019-01-18] MEDS ORDERED: IOVERSOL 350 MG/ML 100 ML VIAL ONE (15:18)
[2019-01-18] MEDS ORDERED: ONDANSETRON HCL 4 MG/2 ML VIAL IVP PRN (16:00)
[2019-01-18] MEDS ORDERED: MORPHINE SULFATE 4 MG/ML SYRINGE IVP PRN (16:00)
[2019-01-18] MEDS ORDERED: HALOPERIDOL LACTATE 5 MG/ML VIAL IVP ONE (16:00)
[2019-01-18] MEDS ORDERED: ACETAMINOPHEN 325 MG TABLET PO PRN (16:00)
[2019-01-18] MEDS ORDERED: 0.9% SODIUM CHLORIDE 10 ML SYRINGE IVP PRN (16:00)
[2019-01-18] MEDS ORDERED: MAGNESIUM HYDROXIDE SUSPENSION 30 ML UDCUP PO PRN (20:45)
[2019-01-18] MEDS ORDERED: BISACODYL 10 MG RECTAL RECTAL SUPPOSITORY PR PRN (20:45)
[2019-01-18 21:16] VITALS: BP 147/77
[2019-01-18] MEDS: ATORVASTATIN CALCIUM 40 MG TABLET PO SCH (21:43)
[2019-01-18] MEDS: DOCUSATE SODIUM 100 MG CAPSULE PO SCH (21:43)
[2019-01-18] MEDS: ACETAMINOPHEN 325 MG TABLET PO PRN (22:09)
[2019-01-18 22:54] VITALS: BP 129/72
[2019-01-19] MEDS: HEPARIN SODIUM,PORCINE 5,000 UNITS/ML VIAL SQ SCH ×3 (00:02→16:37)
[2019-01-19] MEDS: ACETAMINOPHEN 325 MG TABLET PO PRN ×2 (02:10→08:52)
[2019-01-19 05:35] VITALS: BP 124/78
[2019-01-19] MEDS: ASPIRIN 81 MG EC TABLET PO SCH (07:42)
[2019-01-19] MEDS: DOCUSATE SODIUM 100 MG CAPSULE PO SCH ×2 (07:42→20:11)
[2019-01-19] MEDS: HYDROCODONE/ACETAMINOPHEN 5-325 MG TABLET PO PRN ×3 (07:43→16:34)
[2019-01-19 08:01] VITALS: BP 157/93
[2019-01-19] MEDS ORDERED: OLANZapine 5 MG TABLET PO PRN (09:45)
[2019-01-19] MEDS ORDERED: PEG 3350/NA SULF,BICARB,CL/KCL 4000 ML SOLUTION PO ONE (09:45)
[2019-01-19] MEDS ORDERED: *CLINICAL-RENAL DOSING MEDICATIONS CLINICAL ONE (09:45)
[2019-01-19 11:27] VITALS: BP 147/89
[2019-01-19] MEDS ORDERED: QUEtiapine FUMARATE 25 MG TABLET PO SCH (13:00)
[2019-01-19] MEDS ORDERED: SODIUM CHLORIDE 0.9% 500 ML IV ONE (13:07)
[2019-01-19] MEDS ORDERED: HALOPERIDOL 5 MG TABLET PO PRN (13:15)
[2019-01-19] MEDS: RisperiDONE 0.5 MG TABLET PO SCH ×2 (14:23→20:10)
[2019-01-19] MEDS: FLUoxetine HCL 20 MG CAPSULE PO SCH (14:23)
[2019-01-19] MEDS: MEROPENEM 1 GM in SODIUM CHLORIDE 0.9% 100 ML IV SCH ×2 (15:16→21:40)
[2019-01-19 16:16] LABS: BASOPHILS % (AUTO) 0.9 % (0.0-2.0); EOSINOPHILS % (AUTO) 2.6 % (1.0-6.0); HEMATOCRIT 33.9 % (41-53); HEMOGLOBIN 11.1 g/dL (13.5-17.5); LYMPHOCYTES # (AUTO) 0.9 K/uL (1.0-4.8); LYMPHOCYTES % (AUTO) 20.9 % (22.0-44.0); MEAN CORPUSCULAR HEMOGLOBIN 27.8 pg (26.0-34.0); MEAN CORPUSCULAR HGB CONC 32.8 G/dL (31.0-37.0); MEAN CORPUSCULAR VOLUME 85 fL (80-100); MONOCYTES # (AUTO) 0.5 K/uL (0.1-1.0); MONOCYTES % (AUTO) 11.7 % (2.0-9.0); NEUTROPHILS # (AUTO) 2.7 K/uL (1.8-7.7); NEUTROPHILS % (AUTO) 63.9 % (40.0-70.0); PLATELET COUNT (AUTO) 182 K/uL (150-450); RED CELL DISTRIBUTION WIDTH 16.6 % (11.5-14.5)
[2019-01-19 16:20] VITALS: BP 156/91
[2019-01-19 16:30] LABS: ALBUMIN 3.2 g/dL (3.4-5.0); BILIRUBIN,TOTAL 0.5 mg/dL (0.1-1.0); CALCIUM, TOTAL 8.7 mg/dL (8.8-10.5); CREATININE 1.51 mg/dL (0.60-1.30); POTASSIUM 4.4 mmol/L (3.5-5.1); TOTAL PROTEIN, SERUM 6.5 g/dL (6.4-8.2)
[2019-01-19 19:32] VITALS: BP 156/85
[2019-01-19] MEDS: ATORVASTATIN CALCIUM 40 MG TABLET PO SCH (20:11)
[2019-01-19] MEDS ORDERED: QUEtiapine FUMARATE 100 MG TABLET PO SCH (21:00)
[2019-01-19] MEDS ORDERED: RisperiDONE 0.5 MG TABLET PO SCH (21:00)
[2019-01-19 23:03] VITALS: BP 139/91
[2019-01-20] MEDS: HEPARIN SODIUM,PORCINE 5,000 UNITS/ML VIAL SQ SCH ×3 (01:03→17:39)
[2019-01-20 05:00] VITALS: BP 148/74
[2019-01-20] MEDS: HYDROCODONE/ACETAMINOPHEN 5-325 MG TABLET PO PRN ×3 (05:23→15:38)
[2019-01-20 07:21] VITALS: BP 141/73
[2019-01-20] MEDS: ACETAMINOPHEN 325 MG TABLET PO PRN (07:33)
[2019-01-20] MEDS: RisperiDONE 0.5 MG TABLET PO SCH (07:34)
[2019-01-20] MEDS: ASPIRIN 81 MG EC TABLET PO SCH (07:34)
[2019-01-20] MEDS: FLUoxetine HCL 20 MG CAPSULE PO SCH (07:34)
[2019-01-20] MEDS: DOCUSATE SODIUM 100 MG CAPSULE PO SCH (07:34)
[2019-01-20] MEDS: MINERAL OIL 133 ML ENEMA PR SCH ×2 (07:37→07:39)
[2019-01-20] MEDS: LORazepam 1 MG TABLET PO PRN ×2 (08:11→14:22)
[2019-01-20] MEDS: MEROPENEM 1 GM in SODIUM CHLORIDE 0.9% 100 ML IV SCH (10:30)
[2019-01-20 11:53] VITALS: BP 150/91
[2019-01-20 15:02] VITALS: BP 140/59
== END 2019-01-20 19:45 | DRG 391 ==
LOC: EMS 13:24 → 4E 16:21 → 5N 18:34
PROVIDERS: ADMIT Internal Medicine; ATTEND Internal Medicine
DX: K59.09 Other constipation (principal); G92 Toxic encephalopathy; N39.0 Urinary tract infection, site not specified; N17.9 Acute kidney failure, unspecified; I42.9 Cardiomyopathy, unspecified; F33.2 Major depressive disorder, recurrent severe without psychotic features; I13.0 Hypertensive heart and chronic kidney disease with heart failure and stage 1 through stage 4 chronic kidney disease, or unspecified chronic kidney disease; N18.3 Chronic kidney disease, stage 3 (moderate); F03.90 Unspecified dementia, unspecified severity, without behavioral disturbance, psychotic disturbance, mood disturbance, and anxiety; J44.9 Chronic obstructive pulmonary disease, unspecified; F41.9 Anxiety disorder, unspecified; I25.10 Atherosclerotic heart disease of native coronary artery without angina pectoris; E78.00 Pure hypercholesterolemia, unspecified; E78.5 Hyperlipidemia, unspecified; F17.210 Nicotine dependence, cigarettes, uncomplicated; F25.9 Schizoaffective disorder, unspecified; I48.91 Unspecified atrial fibrillation; Z16.12 Extended spectrum beta lactamase (ESBL) resistance; N40.1 Benign prostatic hyperplasia with lower urinary tract symptoms; R33.8 Other retention of urine; G40.909 Epilepsy, unspecified, not intractable, without status epilepticus; F34.1 Dysthymic disorder; N28.1 Cyst of kidney, acquired; I50.9 Heart failure, unspecified; G89.29 Other chronic pain; Z88.1 Allergy status to other antibiotic agents; I25.2 Old myocardial infarction; Z87.11 Personal history of peptic ulcer disease; Z90.79 Acquired absence of other genital organ(s); Z59.0 Homelessness; Z89.021 Acquired absence of right finger(s); Z90.49 Acquired absence of other specified parts of digestive tract; Z95.0 Presence of cardiac pacemaker; Z88.8 Allergy status to other drugs, medicaments and biological substances; Z86.19 Personal history of other infectious and parasitic diseases; Z91.19 Patient's noncompliance with other medical treatment and regimen; Z91.018 Allergy to other foods
CPT/HCPCS: 74177; 87081; 93005; 99291; G0378; J1170; J1630; J1644; J2185; J2405; J7030; J7040; J7050